=== PATIENT | male | born 1970 | race Hispanic/Latino ===

== ENCOUNTER 2020-10-01 10:01 | Emergency (ER) | payer SELFPAY ==
--- NOTE | 2020-10-01 10:16 | Emergency Department Report ---
Blank Doc - Documentation Documentation: This is a 50-year-old male that presents with sandra flank pain and hematuria. HX of kidney stone. This initial assessment/diagnostic orders/clinical plan/treatment(s) is/are subject to change based on patient's health status, clinical progression and re- assessment by fellow clinical providers in the ED. Further treatment and workup at subsequent clinical providers discretion. Patient/guardians urged not to elope from the ED as their condition may be serious if not clinically assessed and managed. Initial orders include: 1- Patient sent to [facility] for further evaluation and treatment 2- UA 3- CT abd
[2020-10-01 10:58] LABS: Bilirubin,Urine NEG (Negative); Blood,Urine NEG (Negative); Color,Urine Straw (Yellow); Protein,Urine <15 mg/dL mg/dL (Negative); RBC,Urine < 1.0 /HPF (0.0-6.0); Urobilinogen,Urine < 2.0 mg/dL (<2.0); WBC,Urine < 1.0 /HPF (0.0-6.0)
--- NOTE | 2020-10-01 11:02 | Cat Scan Report ---
CT ABDOMEN AND PELVIS WITHOUT CONTRAST HISTORY: MAIN. Bilateral flank pain for the past 2 weeks with hematuria COMPARISON: None. TECHNIQUE: CT images of the abdomen and pelvis were obtained without administration of intravenous co ntrast. All CT scans at this location are performed using CT dose reduction for ALARA by means of au tomated exposure control. FINDINGS: Lungs/bones: There is minimal patchy atelectasis in the lung bases with otherwise clear lungs. Moder ately advanced atherosclerotic disease is present in the coronary arteries. Degenerative changes are present throughout the spine and pelvis with no acute osseous abnormality. Abdomen/pelvis: There is punctate nonobstructive nephrolithiasis in both kidneys with a 2 mm stone i n the lower pole the left and a 1 mm stone in the midpole the right. No renal mass, cyst, or hydronep hrosis. No ureteral stone identified and likewise no stone in the urinary bladder. The gallbladder is surgically absent. There is mild hepatic steatosis with no liver lesion identified . The spleen, pancreas, adrenals, and proximal GI tract appear unremarkable. The prostate is unremarkable. The urinary bladder is partially collapsed but otherwise unremarkable. No pelvic free fluid. No acute colonic abnormality identified. The appendix is normal. IMPRESSION: 1. Minimal punctate nonobstructive nephrolithiasis with no inflammatory change or hydronephrosis. 2. Additional incidental findings as above. Signer Name: Naldo Xiong MD Signed: 10/01/2020 10:57 AM Workstation Name: [email or web address]
[2020-10-01 14:15] VITALS: BP 118/70
[2020-10-01] MEDS ORDERED: KETOROLAC 30 MG/1 ML INJ IV ONE (14:20)
[2020-10-01] MEDS ORDERED: ONDANSETRON 4 MG/2 ML INJ IV ONE (14:20)
--- NOTE | 2020-10-01 14:31 | Emergency Department Report ---
ED Male HPI - General Chief complaint: Urogenital-Male Stated complaint: POSS KIDNEY STONE Time Seen by Provider: 10/01/20 10:12 Source: patient Mode of arrival: Ambulatory Limitations: No Limitations - History of Present Illness Initial comments: 50-year-old male with a past medical history of CAD with stent placement currently on aspirin, diabetes, and kidney stones requiring lithotripsy x2 presents to the hospital complaints of left leg pain and hematuria. For last 3 weeks patient has had constant sharp left-sided flank pain worse with movement and palpation. 3 AM he had episode of gross hematuria and dysuria that has since resolved. He has had persistent nausea without vomiting or fever. Patient states symptoms similar with previous kidney stones. Patient does not have a current urologist - Related Data Previous Rx's Medication Instructions Recorded Last Taken Type Acetaminophen [Acetaminophen TAB] 1,000 mg PO Q6HR PRN #20 tablet 10/01/20 Unknown Rx Ketorolac [Toradol] 10 mg PO Q6H PRN #20 tablet 10/01/20 Unknown Rx Ondansetron [Zofran Odt] 4 mg PO Q8HR PRN #20 tab.rapdis 10/01/20 Unknown Rx Allergies Allergy/AdvReac Type Severity Reaction Status Date / Time No Known Allergies Allergy Unverified 10/01/20 10:13 ED Review of Systems ROS: Stated complaint: POSS KIDNEY STONE Other details as noted in HPI Comment: All other systems reviewed and negative ED Past Medical Hx - Past Medical History Previous Medical History?: Yes Hx Diabetes: Yes - Surgical History Past Surgical History?: Yes Additional Surgical History: cardiac stent - Social History Smoking Status: Current Every Day Smoker Substance Use Type: None, Alcohol - Medications Home Medications: Home Medications Medication Instructions Recorded Confirmed Last Taken Type Acetaminophen [Acetaminophen TAB] 1,000 mg PO Q6HR PRN #20 tablet 10/01/20 Unknown Rx Ketorolac [Toradol] 10 mg PO Q6H PRN #20 tablet 10/01/20 Unknown Rx Ondansetron [Zofran Odt] 4 mg PO Q8HR PRN #20 tab.rapdis 10/01/20 Unknown Rx ED Physical Exam - General Limitations: No Limitations - Other Other exam information: General: No acute distress Head: Atraumatic Eyes: normal appearance ENT: Moist mucous membranes Neck: Normal appearance, no midline tenderness Chest: Clear to auscultation bilaterally CV: Regular rate and rhythm Abdomen: Soft, normal bowel sounds, left lower quadrant tenderness without rebound or guarding, nondistended, no rebound or guarding Back: Normal inspection, left lower back/flank tenderness Extremity: Normal inspection, full range of motion Neuro: Alert O x 3, no facial asymmetry, speech clear, no gross motor sensory deficit Psych: Appropriate behavior Skin: No rash ED Course Vital Signs 10/01/20 10/01/20 10/01/20 10:11 14:14 14:15 Temperature 97.5 F L 98.0 F Pulse Rate 95 H 83 Respiratory 16 16 16 Rate Blood Pressure 120/77 Blood Pressure 118/70 [Left] O2 Sat by Pulse 97 98 98 Oximetry 10/01/20 10/01/20 14:53 15:07 Temperature Pulse Rate Respiratory 18 16 Rate Blood Pressure Blood Pressure [Left] O2 Sat by Pulse Oximetry ED Medical Decision Making - Radiology Data Radiology results: report reviewed CT ABDOMEN AND PELVIS WITHOUT CONTRAST HISTORY: MAIN. Bilateral flank pain for the past 2 weeks with hematuria COMPARISON: None. TECHNIQUE: CT images of the abdomen and pelvis were obtained without administration of intravenous contrast. All CT scans at this location are performed using CT dose reduction f or ALARA by means of automated exposure control. FINDINGS: Lungs/bones: There is minimal patchy atelectasis in the lung bases with otherwise clear lungs. Moderately advanced atherosclerotic disease is present in the coronary arteries. Degenerative changes are present throughout the spine and pelvis with no acute osseous abnormality. Abdomen/pelvis: There is punctate nonobstructive nephrolithiasis in both kidneys with a 2 mm stone in the lower pole the left and a 1 mm stone in the midpole the right. No renal mass, cyst, or hydronephrosis. No ureteral stone identified and likewise no stone in the urinary bladder. The gallbladder is surgically absent. There is mild hepatic steatosis with no liver lesion identified. The spleen, pancreas, adrenals, and proximal GI tract appear unremarkable. The prostate is unremarkable. The urinary bladder is partially collapsed but otherwise unremarkable. No pelvic free fluid. No acute colonic abnormality identified. The appendix is normal. IMPRESSION: 1. Minimal punctate nonobstructive nephrolithiasis with no inflammatory change or hydronephrosis. 2. Additional incidental findings as above. - Medical Decision Making 50-year-old male presents to the hospital with left flank pain x2-week and hematuria this morning but has since resolved. He endorses that the symptoms are similar to his previous kidney stone pain in the past. CT confirms nephrolithiasis without ureteral stones, inflammatory changes, hydronephrosis. UA negative for bladder infection. Patient was provided nonnarcotic pain m edication given that he is applying for a new job and will be drug tested. Critical Care Time: No Critical care attestation.: If time is entered above; I have spent that time in minutes in the direct care of this critically ill patient, excluding procedure time. ED Disposition Clinical Impression: Renal colic on left side, Bilateral nephrolithiasis Disposition: TO HOME OR SELFCARE Is pt being admited?: No Does the pt Need Aspirin: No Condition: Stable Instructions: Renal Colic, [id number] Additional Instructions: Take the medication as prescribed. Follow-up with your doctor or doctor/clinic provided. Return if symptoms worsen as indicated by your discharge instructions. Prescriptions: Acetaminophen [Acetaminophen TAB] 1,000 mg PO Q6HR PRN #20 tablet PRN Reason: Pain , Severe (7-10) Ketorolac [Toradol] 10 mg PO Q6H PRN #20 tablet PRN Reason: Pain Ondansetron [Zofran Odt] 4 mg PO Q8HR PRN #20 tab.rapdis PRN Reason: Nausea And Vomiting Referrals: JUSTINO BREWSTER MD [Staff Physician] - 3-5 Days (Urology )
== END 2020-10-01 15:07 | disposition home or self-care (01) ==
LOC: ED 10:01
DX: N20.0 Calculus of kidney (principal); E11.9 Type 2 diabetes mellitus without complications; F17.200 Nicotine dependence, unspecified, uncomplicated; Z79.899 Other long term (current) drug therapy
CPT/HCPCS: 74176; 81001; 96374; 96375; 99284; J1885; J2405